=== PATIENT | female | born 1960 | race Caucasian/White ===

== ENCOUNTER 2024-06-20 12:49 | Outpatient (CLI) | payer BC, SELFPAY ==
[2024-06-20 13:50] VITALS: PULSE 74
[2024-06-20] MEDS: ALBUTEROL 0.083% 2.5 MG/3 ML NEB IH (13:50)
== END 2024-06-20 23:59 | disposition home or self-care (01) ==
PROVIDERS: PCP Family Medicine; Visit Provider Internal Medicine Pulmonary Disease
DX: R06.09 Other forms of dyspnea (principal); F17.210 Nicotine dependence, cigarettes, uncomplicated
CPT/HCPCS: 71271; 94060; 94618; 94640; 94726; 94729; J7613

== ENCOUNTER 2025-01-22 15:01 | Outpatient (CLI) | payer BC, SELFPAY ==
--- NOTE | 2025-01-22 15:07 | CT_ITS ---
FINAL REPORT CLINICAL HISTORY: 6-month follow-up cough, soa COMPARISON: LDCT 06/20/2024 FINDINGS: CT CHEST without contrast COMPARISON: None . TECHNIQUE: Axial CT without contrast This study was performed with techniques to keep radiation doses as low as reasonably achievable, (ALARA). Individualized dose reduction techniques using automated exposure control or adjustment of mA and/or kV according to the patient''s size were employed. FINDINGS: No acute lung disease is present . The 3 mm right upper lobe nodule seen on the prior exam of June 2024 remains present, and stable in size and appearance, best seen on image #49 of series 3. There is a 6 mm nodule along the minor fissure in the right lung, best seen on image #125 of series 3, also stable. There is a third lesion not mentioned in the prior dictation, 5 mm in size, along the left upper major fissure, seen on image #66 of series 3, stable. Changes of emphysema are once again identified as well as remote granulomatous disease. No pleural or pericardial effusion is seen . No adenopathy or mass lesion is present . Fatty infiltration of the liver is present. IMPRESSION: 1. Stable nodules as described. Recommend resumption of LDCT in 12 months for further evaluation. This study was performed using automated techniques to achieve radiation exposure as low as reasonably achievable Reviewed, Interpreted and Dictated by Rio Fisher MD Transcribed by Belen Maradiaga Authenticated and [facility]
== END 2025-01-22 23:59 | disposition home or self-care (01) ==
LOC: RAD 15:02
PROVIDERS: PCP Family Medicine; Visit Provider Internal Medicine Pulmonary Disease
DX: R91.8 Other nonspecific abnormal finding of lung field (principal); R05.9 Cough, unspecified; R06.02 Shortness of breath
CPT/HCPCS: 71250